=== PATIENT | male | born 1965 | race Caucasian/White ===

== ENCOUNTER 2016-11-30 10:53 | Emergency (ER) | payer SELFPAY ==
[~2016-11-30] VITALS: Ht 177.8 cm; Wt 86.2 kg
[2016-11-30 10:58] VITALS: BP 138/86
[2016-11-30] MEDS ORDERED: ACETAMINOPHEN ES 500 MG TABLET ONE (11:29)
[2016-11-30] MEDS ORDERED: ACETAMINOPHEN ES 500 MG TABLET PO ONE (11:30)
== END 2016-11-30 12:39 | disposition home or self-care (01) ==
LOC: ER 11:00
DX: M25.561 Pain in right knee (principal); G89.29 Other chronic pain; Z98.890 Other specified postprocedural states
CPT/HCPCS: 73564-TC; A4606; Z7610